=== PATIENT | female | born 1990 | race Caucasian/White ===

== ENCOUNTER → 2019-08-30 | Outpatient (CLI) | payer OTHER | LOC: LAB 09:12 | DX: F41.1 Generalized anxiety disorder (principal) ==

== ENCOUNTER → 2020-02-09 | Outpatient (CLI) | payer OTHER | LOC: LAB 12:58 | DX: R19.7 Diarrhea, unspecified (principal); M79.10 Myalgia, unspecified site; Z20.828 Contact with and (suspected) exposure to other viral communicable diseases ==

== ENCOUNTER → 2020-02-28 | Outpatient (CLI) | payer OTHER ==
[2020-02-28 09:58] LABS: EOS # 0.1 (0.04-0.40); EOS % 2.9 % (1.0-5.0); HEMATOCRIT 37.7 % (37.0-47.0); LYMPH# 1.2 (1.50-4.00); MEAN CELL VOLUME 93 fl (78-100); MEAN CORPUSCULAR HEMOGLOBIN 32 pg (27-31); MEAN CORPUSCULAR HGB CONC 35 g/dL (33-37); MEAN PLATELET VOLUME 10.1 fl (7.4-10.4); MONO # 0.4 (0.20-0.80); NEU # 2.8 (1.40-6.50); PLATELET COUNT 232 K/mm3 (130-400); RED BLOOD COUNT 4.05 M/mm3 (4.10-5.30); RED CELL DISTRIBUTION WIDTH 12.4 % (11.5-14.5); WHITE BLOOD COUNT 4.5 K/mm3 (4.8-10.8)
[2020-02-28 10:01] LABS: ALBUMIN 4.4 g/dL (3.5-5.0)
[2020-02-28 10:02] LABS: POTASSIUM 3.9 mmol/L (3.5-5.1)
[2020-02-28 10:03] LABS: CALCIUM 8.9 mg/dL (8.3-10.5)
[2020-02-28 10:04] LABS: TOTAL PROTEIN 7.4 g/dL (6.4-8.3)
[2020-02-28 10:06] LABS: TOTAL BILIRUBIN 0.4 mg/dL (0.2-1.2)
[2020-02-29 11:45] LABS: ANA SCREEN with REFLEX Negative (Negative)
[2020-03-01 21:46] LABS: LYME DISEASE EIA Negative (Negative)
== END ==
LOC: LAB 09:41
PROVIDERS: Physician Assistant
DX: R50.9 Fever, unspecified (principal); M25.50 Pain in unspecified joint; R63.5 Abnormal weight gain; K90.9 Intestinal malabsorption, unspecified; R51 Headache; Z20.828 Contact with and (suspected) exposure to other viral communicable diseases

== ENCOUNTER → 2021-11-08 | Outpatient (CLI) | payer OTHER | LOC: RAD 09:58 → LAB 09:58 | DX: M25.561 Pain in right knee (principal) ==

== ENCOUNTER → 2021-12-06 | Outpatient (CLI) | payer OTHER | LOC: RAD 13:12 | DX: J34.2 Deviated nasal septum (principal) ==